=== PATIENT | male | born 1965 | race Caucasian/White ===

== ENCOUNTER 2023-09-05 10:55 | Outpatient (REF) | payer OTHER, SELFPAY ==
[2023-09-05 14:42] LABS: MANUAL DIFF FLAG NO
[2023-09-05 14:52] LABS: Basophils Percent Auto 0.5 % (0-2); Eosinophils Absolute Auto 0.3 X10*3/uL (0.0-0.4); Eosinophils Percent Auto 3.1 % (0-4); Hematocrit 43.2 % (42.0-52.0); Hemoglobin 14.1 g/dl (14.0-18.0); Imm Gran Abs Auto 0.05 X10*3/uL (0.00-0.03); Imm Gran Pct Auto 0.6 % (0.0-0.4); Lymphocytes Absolute Auto 2.5 X10*3/uL (1.2-4.9); Mean Corpuscular HGB Conc 32.6 g/dl (31.0-36.0); Mean Corpuscular Hemoglobin 28.7 pg (27.0-33.0); Mean Platelet Volume 9.8 fL (9.4-12.4); Monocytes Absolute Auto 0.8 X10*3/uL (0.1-1.2); Monocytes Percent Auto 8.7 % (2-11); Neutrophils Absolute Auto 5.1 x10*3/uL (2.0-8.3); Neutrophils Percent Auto 58.1 % (45-73); Platelet Count 279 X10*3/uL (160-400); Red Blood Count 4.91 X10*6/uL (4.60-5.80); Red Cell Distribution Width 13.4 % (11.0-16.0); White Blood Count 8.7 X10*3/uL (4.8-10.8)
[2023-09-05 15:09] LABS: Alanine Aminotransferase 26 U/L (0-40); Albumin Level 4.7 g/dL (3.5-5.0); Alkaline Phosphatase 64 U/L (39-117); Anion Gap 14 (12-20); Aspartate Amino Transferase 24 U/L (5-37); Bilirubin Total 0.5 mg/dL (0.0-1.0); Blood Urea Nitrogen 22 mg/dL (9-16); Calcium 9.9 mg/dL (8.4-10.2); Carbon Dioxide 28 mmol/L (22-29); Chloride 100 mmol/L (96-108); Estimated Glomerular Filt Rate > 60; Glucose Random 88 mg/dL (60-115); Potassium 3.6 mmol/L (3.3-5.1); Sodium 138 mmol/L (135-145); Total Protein 8.1 g/dL (6.5-8.0)
== END 2023-09-05 10:56 | disposition home or self-care (01) ==
LOC: CF 10:55
PROVIDERS: Visit Provider Internal Medicine
DX: Z01.818 Encounter for other preprocedural examination (principal)
CPT/HCPCS: 36415; 80053; 85025

== ENCOUNTER 2023-09-12 11:12 | Day surgery (SDC) | payer OTHER, SELFPAY ==
[2023-09-06 12:43] VITALS: BMI 31.7
[2023-09-12] VITALS (7 sets, daily range): BP systolic 102–136; BP diastolic 58–81; PULSE 66–76; RESP 16–18; TEMP 36.3–37.1; O2SAT 93–99; BMI 30.6
--- NOTE | 2023-09-12 15:35 | HO.ANESPROP2 ---
Documented by User: Tracey Junior NP 09/11/23 13:43 HPI - Anesthesia Eval Consult details Narrative: 57yo M for Left Superior Rectus Eye Muscle Recession,Right Inferior Oblique Medically optimized +[employer] [facility] Past Medical History Medical History History of snoring HTN (hypertension) Surgical History Surgical History Hx of colonoscopy Hx of bilateral cataract extraction Social History Social History Are you a primary geriatric care manager to a significant other at home: No Do you presently have visiting nurse or other home services: No Patient Tobacco Use Status: Never used Tobacco Use of substances other than those prescribed or required for medical reasons: No Have you been hit, kicked, punched, or otherwise hurt by someone within the past year? If so, by whom?: No Are you DNR?: No Advance Directives: No Advance Directives Information Provided: Yes Advance Directives on File: No Recently lost weight without trying: No Poor oral hygiene: No Meds Allergies Allergy/AdvReac Type Severity Reaction Status Date / Time No Known Allergies Allergy Verified 09/06/23 12:43 Home Medications ?Medication ?Instructions ?Recorded ?Confirmed ?Last Taken ?Type chlorthalidone 50 mg tablet 50 mg PO DAILY 09/06/23 09/12/23 09/11/23 History lisinopril 40 mg tablet 40 mg PO DAILY 09/06/23 09/12/23 09/12/23 History Exam Height,Weight and Vital Signs: Height 6 ft 3 in Weight 115.212 kg Pertinent Lab Results Pertinent Lab Results: Laboratory Tests 09/05/23 10:58 WBC 8.7 Hgb 14.1 Hct 43.2 Plt Count 279 Sodium 138 Potassium 3.6 Chloride 100 Carbon Dioxide 28 BUN 22 H Creatinine 1.02 Assessment and Plan Assessment Anesthesia Assessment: Chart Reviewed Documented by User: Luiza Escobar DO 09/12/23 15:55 [facility] Past Medical History Medical History History of snoring HTN (hypertension) Family History Family history of problems with anesthesia: No Surgical History Surgical History Hx of colonoscopy Hx of bilateral cataract extraction History of Problems with Anesthesia: No Social History Social History Are you a primary geriatric care manager to a significant other at home: No Do you presently have visiting nurse or other home services: No Patient Tobacco Use Status: Never used Tobacco Use of substances other than those prescribed or required for medical reasons: No Have you been hit, kicked, punched, or otherwise hurt by someone within the past year? If so, by whom?: No Are you DNR?: No Advance Directives: No Advance Directives Information Provided: Yes Advance Directives on File: No Recently lost weight without trying: No Poor oral hygiene: No Meds Allergies Allergy/AdvReac Type Severity Reaction Status Date / Time No Known Allergies Allergy Verified 09/06/23 12:43 Home Medications ?Medication ?Instructions ?Recorded ?Confirmed ?Last Taken ?Type chlorthalidone 50 mg tablet 50 mg PO DAILY 09/06/23 09/12/23 09/11/23 History lisinopril 40 mg tablet 40 mg PO DAILY 09/06/23 09/12/23 09/12/23 History Exam Exam Date and Time: September 12, 2023 1535 Height,Weight and Vital Signs: Height 6 ft 3 in Weight 115.212 kg Height 6 ft 3 in Weight 111.13 kg Vital Signs Temperature 98.8 F 09/12/23 13:01 Pulse Rate 76 09/12/23 13:01 Respiratory Rate 16 09/12/23 13:01 Blood Pressure 136/81 09/12/23 13:01 Pulse Oximetry 95 09/12/23 13:01 Oxygen Delivery Method Room Air 09/12/23 13:01 Temperature 98.8 F 09/12/23 13:01 Pulse Rate 76 09/12/23 13:01 Respiratory Rate 16 09/12/23 13:01 Blood Pressure 136/81 09/12/23 13:01 Pulse Oximetry 95 09/12/23 13:01 Oxygen Delivery Method Room Air 09/12/23 13:01 Airway Mallampati Class: II TM Dist: >3cm Neck ROM: Limited Loose/Missing/Broken Teeth: No (patient denies any loose or broken teeth) Heart: S1S2 Lungs: CTAB Assessment and Plan Assessment Anesthesia Assessment: Anesthesia Plan Discussed and Chart Reviewed Final Anesthetic Review Family History of Problems with Anesthesia: No History of Problems with Anesthesia: No NPO: Yes ASA Class: II Final Preanesthetic Review: No Changes in Pt Med Stat, Meds/Allgs Chart Reviewed, Consent Obtained/Reviewed and Anes Risks/Benef Reviewed Patient Risk: Low Procedure Risk: Low Anesthetic Plan Anesthetic Plan: GA and Agree w/ Assess. and Plan Disposition: Standard PACU
--- NOTE | 2023-09-12 17:48 | P.OPHTHAL_ITS ---
Ophthalmology Operative Note Date of Service: 09/12/23 Narrative: Diagnosis right superior oblique palsy. Procedures 1. Recession of left inferior rectus 6 mm 2. Anterior transposition of the right inferior oblique. Surgeon Dr. Gaviria. Anesthesia general. Complications none. The patient was brought to the operating room placed under general anesthesia. The eyes were prepped and draped in the usual sterile ophthalmic fashion. A lid speculum was placed in the left eye and a peritomy was created around the inferior rectus muscle. The inferior rectus was hooked and secured with a double-armed Vicryl suture. The overlying fascial attachments and lid retractors were dissected f ree. The muscle was disinserted from the globe and reattached to a position 6 mm behind the original insertion. Conjunctiva was closed with interrupted Vicryl sutures. The lid speculum was moved to the right eye where a peritomy was created from the 04:00 o'clock to the 09:00 o'clock positions. The inferior and lateral rectus muscles were grasped with large muscle hooks and the inferior oblique carefully identified and grasped with 2 small tenotomy hooks. It was transferred to the large muscle hooks and grasped near its insertion with a curved mosquito. Was then disinserted from the globe and transposed to a position 2 mm posterior and 2 mm temporal to the temporal insertion of the inferior rectus muscle. Conjunctiva was closed with interrupted Vicryl sutures. The patient was then awoken from general anesthesia and discharged to postoperative recovery in good condition
== END 2023-09-12 17:57 | disposition home or self-care (01) ==
LOC: HO.SSS 11:12
PROVIDERS: PCP Internal Medicine; Visit Provider Ophthalmology
PROC: (CPT 67314; principal; 2023-09-12 13:30)
DX: H49.11 Fourth [trochlear] nerve palsy, right eye (principal); I10 Essential (primary) hypertension; Z79.899 Other long term (current) drug therapy
CPT/HCPCS: 67314; 67320; J0131; J1100; J1596; J1885; J2250; J2371; J2405; J2704; J3010

== ENCOUNTER 2023-09-21 08:20 | Outpatient (REF) | payer OTHER, SELFPAY ==
[2023-09-21 14:17] LABS: Cholesterol 180 mg/dL (<200); HDL Cholesterol 34 mg/dL (>40); LDL Cholesterol Calculated 127 mg/dL (<100); Triglycerides 98 mg/dL (<150)
[2023-09-21 14:51] LABS: PSA,Total (Free>4and<10) 4.52 ng/mL (0.00-4.00)
[2023-09-24 10:59] LABS: Free Prostate Spec Ag 0.5 ng/mL; Percent Free Prostate Spec Ag 12 % (calc) (>25); Prostate Specific Ag Total 4.3 ng/mL (< OR = 4.0)
== END 2023-09-21 08:21 | disposition home or self-care (01) ==
LOC: HO.CHCLDS 08:20
PROVIDERS: Visit Provider Internal Medicine
DX: I10 Essential (primary) hypertension (principal); R35.1 Nocturia; Z12.5 Encounter for screening for malignant neoplasm of prostate
CPT/HCPCS: 36415; 80061; 84153; 84154

== ENCOUNTER 2023-09-25 12:21 | Outpatient (REF) | payer OTHER, SELFPAY ==
--- NOTE | ~2023-09-25 | XR_ITS ---
EXAMINATION: XR HIP, RIGHT CLINICAL INFORMATION: Atraumatic right hip pain for months COMPARISON: None available. TECHNIQUE: Two views of the right hip. FINDINGS: Severe hip joint narrowing. Possible humeral head bone island. No fracture or dislocation. XR/XR hip RT min 2V IMPRESSION: Advanced osteoarthritis right hip.
== END 2023-09-25 12:22 | disposition home or self-care (01) ==
LOC: HO.HHCX 12:21
PROVIDERS: Visit Provider Internal Medicine
DX: M25.551 Pain in right hip (principal)
CPT/HCPCS: 73502

== ENCOUNTER 2024-01-22 12:47 | Outpatient (REF) | payer OTHER, SELFPAY ==
--- NOTE | ~2024-01-22 | US_ITS ---
EXAMINATION: US EXTRACRANIAL CAROTID DUPLEX, BILATERAL CLINICAL INFORMATION: Hypertension. Bilateral carotid stenoses COMPARISON: None TECHNIQUE: Real-time ultrasound and Doppler techniques (integrating B-mode 2-D vascular images, Doppler spectral analysis and color-flow Doppler imaging) were utilized to interrogate the extracranial carotid arteries, the vertebral arteries and proximal subclavian arteries bilaterally. The degree of stenosis is determined by criteria similar to NASCET. FINDINGS: Right Side: 1. There is mild atherosclerotic plaque seen in the bifurcation/proximal ICA region. 2. The common carotid artery PSV proximally is 158 cm/s and distally 133 cm/s. 3. The proximal internal carotid artery velocities are 79 cm/s systolic and 14 cm/s diastolic. 4. The proximal external carotid artery PSV is 184 cm/s. 5. The vertebral artery shows antegrade flow. 6. The subclavian artery waveforms are normal. Left Side: 1. There is mild atherosclerotic plaque seen in the bifurcation/proximal ICA region. 2. The common carotid artery PSV proximally is 204 cm/s and distally 117 cm/s. 3. The proximal internal carotid artery velocities are 102 cm/s systolic and 24 cm/s diastolic. 4. The proximal external carotid artery PSV is 127 cm/s. 5. The vertebral artery shows antegrade flow. 6. The subclavian artery waveforms are normal. US/US carotid duplex BI IMPRESSION: 1. RIGHT: Minimal, non-hemodynamically significant stenosis of the proximal right internal carotid artery corresponding to a 0-49% stenosis by velocity criteria. 2. LEFT: Minimal, non-hemodynamically significant stenosis of the proximal left internal carotid artery corresponding to a 0-49% stenosis by velocity criteria. Electronically signed by: Neil St MD 01/25/2024 09:56 AM EST
== END 2024-01-22 12:48 | disposition home or self-care (01) ==
LOC: HO.HMGCX 12:47
PROVIDERS: PCP Internal Medicine; Visit Provider Internal Medicine
DX: I65.23 Occlusion and stenosis of bilateral carotid arteries (principal)
CPT/HCPCS: 93880

== ENCOUNTER 2024-06-04 09:51 | Outpatient (REF) | payer OTHER, SELFPAY ==
--- OUTSIDE RECORDS SUMMARY | 2024-06-04 11:16 | XMS_ITS | Encounter Summary ---
Author Organization [employer] Address [address] [place] [address] [address] [place] [address] Care Team Providers Care Slot Floorperson Name Role Phone Galindo Cameron MD Primary Care Prov ider Encounter Details Date Type Department Care Team (Late Contact Info) Description 10/18/2023 Orders Only [facility] MED & PEDS [address] [place] [address] Galindo Cameron MD [address] [place] [address] Social History Tobacco Use Types Packs/Day Years Used Date Smoking Tobacco: Never Smokeless Tobacco: Never Sex and Gender Information Value Date Recorded Sex Assigned at Male 12/12/2021 10:18 AM EDT Legal Sex Male 10:18 AM EDT Gender Identity Male 12/12/2021 10:18 AM EDT Sexual Orientation Straight 09/03/2023 2: 31 PM EDT documented as of this encounter Plan of Treatment Upcoming Encounters Date Type Department Care Team (Late Contact Info) Description 08/18/2024 10:30 AM EDT Office Visit [facility] PEDS [address] [place] [address] Galindo Cameron MD [address] [place] [address] documented as of this encounter Visit Diagnoses Not on filedocumented in this encounter Care Teams Slot Floorperson Relationship Specialty Start Date End Date Galindo Cameron MD [address] [place] [address] PCP - General Internal Medicine 01/02/19 documented as of this encounter
--- OUTSIDE RECORDS SUMMARY | 2024-06-04 11:16 | XMS_ITS | Encounter Summary ---
Author Organization [employer] Address [address] [facility] [address] [place] [address] Care Team Providers Care Music Adapter Name Role Phone Galindo Cameron MD Primary Care Prov ider Reason for Visit * Reason Onset Date Comments Referral 12/03/2023 Encounter Details Date Type Department Care Team (Late st Contact Info) Description 12/03/2023 Telephone [facility] MEDICINE [address] [place] [address] Galindo Cameron MD [address] [place] [phone] Referral Social History Tobacco Use Types Packs/Day Years Used Date Smoking Tobacco: Never Smokeless Tobacco: Never Sex and Gender Information Value Date Recorded Sex Assigned at Male 12/12/2021 10:18 AM EDT Legal Sex Male 10:18 AM EDT Gender Identity Male 12/12/2021 10:18 AM EDT Sexual Orientation Straight 09/03/2023 2: 31 PM EDT documented as of this encounter Miscellaneous Notes * Telephone Encounter - Gonzalo rOtiz - 12/04/2023 10:45 AM EDT Tc from patients spouse returning call in regards to message below * Telephone Encounter - Chirag Kuo RN - 12/03/2023 2:20 PM EDT Returned call below to Martha Arizmendi (spouse, on HIPAA). Spoke with her who is requesting for provider to switch cardiology referral from regular to emergency. Martha report that pt had a heart attack and a stent was placed . 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 Martha stated she called [facility] and in order for pt to be seen as soon as possible referral needs to be changed to emergency. Advised that request will be sent to provider who placed the referral. Martha verbalized understanding and agreed to plan. * Telephone Encounter - Gonzalo Perez - 12/03/2023 11:11 AM EDT Tc from patients spouse calling to request if the provider can call in the referral for cardiology states patient still has not been called for appt continuity writer does see referral appt pending documented in this encounter Plan of Treatment Upcoming Encounters Date Type Department Care Team (Late st Contact Info) Description 08/18/2024 10:30 AM EDT Office Visit [facility] MED & PEDS [address] [place] [address] Galindo Cameron MD [address] [place] [address] documented as of this encounter Visit Diagnoses Not on filedocumented in this encounter Care Teams Music Adapter Relationship Specialty Start Date End Date Galindo Cameron MD [address] [place] [address] PCP - General Internal Medicine 01/02/19 documented as of this encounter
--- OUTSIDE RECORDS SUMMARY | 2024-06-04 11:16 | XMS_ITS | Encounter Summary ---
Author Organization [employer] Address [address] [place] [address] [address] [place] [address] Care Team Providers Care Occupational Ther Name Role Phone Galindo Cameron MD Primary Care Prov ider Encounter Details Date Type Department Care Team (Late st Contact Info) Description 05/12/2024 Orders Only [facility] MED & PEDS [address] [place] [address] ProviderJenn MD Social History Tobacco Use Types Packs/Day Years Used Date Smoking Tobacco: Never Smokeless Tobacco: Never Depression Answer Date Recorded Patient Health Questionnaire-9 Score 1 05/12/2024 Patient Health Questionnaire-9 Score 1 05/12/2024 Last PHQ-9: Questionnaire Data Not on file 0 05/12/2024 Depression Answer Date Recorded Patient Health Questionnaire-2 Score 0 05/12/2024 Sex and Gender Information Value Date Recorded Sex Assigned at Male 12/12/2021 10:18 AM EDT Legal Sex Male 10:18 AM EDT Gender Identity Male 12/12/2021 10:18 AM EDT Sexual Orientation Straight 09/03/2023 2: 31 PM EDT documented as of this encounter Plan of Treatment Upcoming Encounters Date Type Department Care Team (Late st Contact Info) Description 08/18/2024 10:30 AM EDT Office Visit [facility] MED & PEDS [address] [place] [address] Galindo Cameron MD [address] [place] [address] documented as of this encounter Procedures Procedure Name Priority Date/Time Associated Diagnosis Comments SURGICAL PATHOLOGY Routine 04/28/2024 10:08 AM EDT documented in this encounter Results * Surgical Pathology (04/28/2024 10:08 AM EDT) us Historical Provider LAB PATHOLOGY ORDERABLES Final Result documented in this encounter Visit Diagnoses Not on filedocumented in this encounter Additional Health Concerns Assessment Noted Time PHQ-9 Depression Total Score: 1 05/13/19 25 2:54 PM EDT documented as of this encounter Care Teams Occupational Ther Relationship Specialty Start Date End Date Galindo Cameron MD [address] [place] [address] PCP - General Internal Medicine 01/02/19 documented as of this encounter
--- OUTSIDE RECORDS SUMMARY | 2024-06-04 11:16 | XMS_ITS | Data Portability ---
Author Organization [facility] [employer] [facility] [address] Address [address] [place] [address] Assessment No assessment recorded. Plan of Treatment Reminders Order Date Submit Date Provider Last Modified By Organization Details Last Modified Time Details Appointments None record ed. Lab None record ed. Referral None record ed. Procedures None record ed. Surgeries None record ed. Imaging None record ed. Medication Orders None record ed. Patient TargetsNo targets recorded. Patient InstructionsNo instructions recorded. Reason for Referral None Reported. Procedures Surgical History Date Name Laterality Status Provider Name and Address Organization Details Recorded Time [facility] PHYSICAL completed KEVON CARL [place] [employer] [facility] 04/27/2022 11:02:29 Imaging Results None recorded. Procedure Notes None recorded. Medical Equipment None Reported. Vitals None Recorded Social History None recorded. Functional Status None recorded. Mental Status None recorded. Family History Nothing Reported. Medical History No medical history recorded. Past Encounters Encounter ID Performer Location Encounter Start Date Encounter Closed Date Diagnosis/Indication Diagnosis SNOMED-CT Code Diagnosis ICD10 Code Diagnosis Note [id number] [place] [id number] [address] [place] [address] 04/27/2022 09:58:23 04/27/2022 13:08:40 Molecular Technologist license medical examination 778881208 Z02.4 Physical examination 588 0005 Z02.4 Health Concerns Section Related Observation LastModified by Organization Detai ls LastModified Time None Recorded Concern Status LastModified by Organization Details LastModified Time None Recorded Advance Directives Directive None Recorded Payers Encounter Date Sequence Insurance Name Policy Number Policy Shell Covered Member ID Shell Member ID Guarantor Name 04/27/2022 DO NOT USE Pay At Time Of Service FOOD DISTRIBUTER Jaleel Gay
--- OUTSIDE RECORDS SUMMARY | 2024-06-04 11:17 | XMS_ITS | Encounter Summary ---
Author Organization [employer] Address [address] [place] [address] [address] [place] [address] Care Team Providers Care Floater Operator Name Role Phone Galindo Cameron MD Primary Care Prov ider Reason for Visit * Reason Comments Med Refill Encounter Details Date Type Department Care Team (Late Contact Info) Description 01/05/2024 Refill [facility] MED & PEDS [address] [place] [address] Galindo Cameron MD [address] [place] [address] Social History Tobacco Use Types Packs/Day Years [...] Description 08/18/2024 10:30 AM EDT Office Visit [facility] MED & PEDS [address] [place] [address] Galindo Cameron MD [address] [place] [address] documented as of this encounter Visit Diagnoses Not on filedocumented in this encounter Care Teams Floater Operator Relationship Specialty Start Date End Date Galindo Cameron MD [address] [place] [address] PCP - General Internal Medicine 01/02/19 documented as of this encounter
--- OUTSIDE RECORDS SUMMARY | 2024-06-04 11:17 | XMS_ITS | Encounter Summary ---
Author Organization [employer] Address [address] [facility] [address] [place] [address] Care Team Providers Care Beef Killer Name Role Phone Galindo Cameron MD Primary Care Prov ider Reason for Visit * Reason Onset Date Comments Pre-Op 08/24/2023 Encounter Details Date Type Department Care Team (Late st Contact Info) Description 08/24/2023 Telephone [facility] MEDICINE [address] [place] [address] Galindo Cameron MD [address] [place] [phone] Pre-Op Social History Tobacco Use Types Packs/Day Years Used Date Smoking Tobacco: Never Assessed Sex and Gender Information Value Date Recorded Sex Assigned at Male 12/12/2021 10:18 AM EDT Legal Sex Male 10:18 AM EDT Gender Identity Male 12/12/2021 10:18 AM EDT Sexual Orientation Straight 09/03/2023 2: 31 PM EDT documented as of this encounter Miscellaneous Notes * Telephone Encounter - Hector Cates - 08/24/2023 1:25 PM EDT TC placed to pt and Kiley ([facility]) that agreed to pre-op on 08/31/[address] Torres Date of Surgery: 09/11 Surgical procedure being done: Eye Muscle Surgery Type of anesthesia: General Lab needed: No EKG: No Surgeon's name: Dr. Declan Gar Facility name: [facility] Surgeon's office number: [phone] Surgeon's office fax number: [phone] Contact name: Kiley * Telephone Encounter - Rajiv Dao - 08/24/2023 11:35 AM EDT Date of Surgery: 09/11 Surgical procedure being done: Eye Muscle Surgery Type of anesthesia: General Lab needed: No EKG: No Surgeon's name: Dr. Declan Gar Facility name: [facility] Surgeon's office number: [phone] Surgeon's office fax number: [phone] Contact name: Kiley documented in this encounter Plan of Treatment Upcoming Encounters Date Type Department Care Team ([facility] st Contact Info) Description 08/18/2024 10:30 AM EDT Office Visit [facility] MED & PEDS [address] [place] [address] Galindo Cameron MD [address] [place] [address] documented as of this encounter Visit Diagnoses Not on filedocumented in this encounter Care Teams Beef Killer Relationship Specialty Start Date End Date Galindo Cameron MD [address] [place] [address] PCP - General Internal Medicine 01/02/19 documented as of this encounter
--- OUTSIDE RECORDS SUMMARY | 2024-06-04 11:17 | XMS_ITS | Clinical Summary ---
Author Organization [employer] Address [address] [facility] 7t [place] [address] Care Team Providers Care Antique Finisher Name Role Phone Galindo Cameron MD Primary Care Prov ider Allergies No known active allergies Medications Aspirin Low Dose 81 MG EC tablet Take 81 mg by mouth Once per day. 11/12/19 24 Active clopidogrel (Plavix) 75 MG tablet Take 1 tablet by mouth Once per day. 11/12/19 24 Active metoprolol succinate XL (Toprol-XL) 25 MG 24 hr tablet Take 1 tablet by mouth Once per day. 11/12/19 24 Active rosuvastatin (Crestor) 40 MG tablet Take 1 tablet by mouth at bedtime. 11/12/19 24 Active chlorthalidone (Hygroton) 50 MG tablet TAKE 1 TABLET BY MOUTH EVERY DAY 90 tablet 1 05/13/19 25 Active lisinopril 40 MG tabletIndication s:Primary hypertension TAKE 1 TABLET(40 MG) BY MOUTH IN THE MORNING 90 tablet 1 05/13/19 25 Active chlorthalidone (Hygroton) 50 MG tablet TAKE 1 TABLET BY MOUTH EVERY DAY 90 tablet 1 11/13/19 24 025 Discontinued lisinopril 40 MG tabletIndication s:Primary hypertension TAKE 1 TABLET(40 MG) BY MOUTH IN THE MORNING 90 tablet 1 11/13/19 24 025 Discontinued Active Problems Problem Noted Date Diagnosed Date ST elevation myocardial infa rction involving left anterior descending (LAD) coronary artery 12/26/2023 Assessment & Plan (12/26/2023 12:41 PM EST): Patient underwent CHAVEZ, no chest pain reported, followed by cardiology, on rsuvastatin 40mg, DAPT, undergoing cardiac rehab, will follow up reccomendations Bilateral carotid artery stenosis 12/26/2023 Assessment & Plan (12/26/2023 12:41 PM EST): Will order ultrasound t check for carotid artery stenosis Primary hypertension 09/17/2023 Assessment & Plan (05/12/2024 3:53 PM EDT): Controlled, continue current therapy, keep bp log, target <140/90 Assessment & Plan (12/26/2023 12:39 PM EST): Controlled, continue lisinopril/chlorthalidone and metoprolol, keep bp log, keep low sodium diet, follow up in 3 months Assessment & Plan (09/17/2023 7:28 PM EDT): Controlled on lisinopril and chlorthalidone, continue low sodium diet and exercise as tolerated Nocturia 09/17/2023 Assessment & Plan (09/17/2023 7:30 PM EDT): Will send PSA, avoid liquid intake 4 hours prior to sleeping, avoid caffeine Right hip pain 09/17/2023 Assessment & Plan (05/12/2024 3:54 PM EDT): Will refer to ortho, Assessment & Plan (09/17/2023 7:29 PM EDT): Will order a right hip xray and will start on meloxicam, will refer to PT Encounters Date Type Department Care Team Description 05/12/2024 3:30 PM EDT Telemedicine [facility] [address] [place] [address] Galindo Cameron MD Primary hypertension (Primary Dx); Right hip pain 05/12/2024 Travel 05/12/2024 Orders Only [facility] [address] [facility] [place] [address] ProviderJenn MD 05/12/2024 Refill [facility] [address] [place] [address] Galindo Cameron MD Primary hypertension 04/10/2024 Telephone [facility] [address] [place] [address] Galindo Cameron MD from Last 3 Months Immunizations Name Administration Dates Next Due Influenza, seasonal, injecta ble, preservative free 11/19/2023 Pfizer Covid-19 Vaccine 12+ 01/02/2021,,05/15/2020 Tdap 01/02/2019 Zoster, Recombinant 03/10/2019,01/02/2019 Family History Medical History Relation Name Comments Prostate cancer Mother's Brother Relation Name Status Comments Mother's Brother Social History Tobacco Use Types Packs/Day Years Used Date Smoking Tobacco: Never Smokeless Tobacco: Never Tobacco Cessation:Counseling Given: No Depression Answer Date Recorded Patient Health Questionnaire-9 [...] Orientation Straight 09/03/2023 2: 31 PM EDT Last Filed Vital Signs Vital Sign Reading Time Taken Comments Blood Pressure 129/75 05/12/2024 3:53 PM EDT Pulse 80 12/26/2023 10:50 AM EST Temperature 37.1 ??C (98.7 ??F) 12/26/2023 10:[address] Respiratory Rate 20 12/26/2023 10:50 AM EST Oxygen Saturation 98% 11/19/2023 10:32 AM EDT Inhaled Oxygen Concentration - - Weight 110 kg (242 lb) 12/26/2023 10:50 AM EST Height 182.9 cm (6') 12/26/2023 10:50 AM EST Body Mass Index 32.82 12/26/2023 10:50 AM EST Plan of Treatment Upcoming Encounters Date Type Department Care Team (Late st Contact Info) Description 08/18/2024 10:30 AM EDT Office Visit [facility] [address] [place] [address] Galindo Cameron MD [address] [place] [address] Health Maintenance Due Date Last Done Comments CT Colonography 1964 Colonoscopy 1964 Colorectal Cancer Screening 1964 FIT DNA/Cologuard 1964 FIT 1964 FOBT 1964 HIV Screening 1964 SDOH Screening 1964 Sigmoidoscopy 1964 Hepatitis C Screening 1982 Hepatitis B Vaccines (1 of 3 - 19+ 3-dose series) 11/05/1983 Pneumococcal Vaccine: 50+ Years (1 of 2 - PCV) 11/05/1983 COVID-19 Vaccine ( season) 2023 01/22/2022, 01/02/2021, 06/05/2020, Additional history exists Tobacco Screening 11/18/2024 11/19/2023 Alcohol/Substance Use Screening 05/12/2025 05/12/2024 Depression Screening 05/12/2025 05/12/2024, 05/13/19 25 Lipid Panel 09/20/2028 09/21/2023, 01/21/2021 DTaP/Tdap/Td Vaccines (2 - Td or Tdap) 01/02/2029 01/02/2019 RSV Patients and Patients Aged 60 years or older (1 - 1-dose 75+ series) 11/05/2039 Zoster Vaccines Completed 03/10/2019, 01/02/2019 Influenza Vaccine Completed 11/19/2023 HIB Vaccines Aged Out No longer eligi ble based on patient's age to complete this topic HPV Vaccines Aged Out No longer eligi ble based on patient's age to complete this topic Hepatitis A Vaccines Aged Out No long er eligible based on patient's age to complete this topic IPV Vaccines Aged Out No longer eligi ble based on patient's age to complete this topic Meningococcal Vaccine Aged Out No eugenie debra eligible based on patient's age to complete this topic RSV under 20 months Aged Out No longe r eligible based on patient's age to complete this topic Rotavirus Vaccines Aged Out No longer eligible based on patient's age to complete this topic Procedures Procedure Name Priority Date/Time Associated Diagnosis Comments SURGICAL PATHOLOGY Routine 04/28/2024 10 :08 AM EDT LIPID PANEL, STANDARD Routine 09/21/2023 8:21 AM EDT Primary hypertension from Last 3 Months or Most Recently Relevant to Health Maintenance Results * Surgical Pathology (04/28/2024 10:08 AM EDT) Historical Provider LAB PATHOLOGY ORDERABLES Final Result * (ABNORMAL) Lipid Panel, Standard (09/21/2023 8:21 AM EDT) Triglycerides 98 <150 mg/dL [facility] Comment:Desirable Triglyceri de: less than 150 mg/dLBorderline High Triglyceride 150-199 mg/dLHigh Triglyceride: 200-499 mg/dLVery High Triglyceride: greater than or equal to 5OO mg/dL Cholesterol 180 <200 mg/dL [facility] Comment:Desirable Cholestero l: less than 200 mg/dLBorderline High Cholesterol: 200-239 mg/dLHigh Cholesterol: greater than 239 mg/dL LDL Cholesterol Calculated 127(H) <100 mg/dL [facility] Comment:Desirable LDL: less than 100 mg/dLNear Optimal/Above Optimal LDL: 110- 129 mg/dLBorderline High LDL: 130-159 mg/dLHigh LDL: 160-189 mg/dLVery High LDL: greater than or equal to 190 mg/dL HDL Cholesterol 34(L) >40 mg/dL [facility] Comment:Desirable HDL: great er than 40 mg/dL Note: This HDL assay may give artificially low results in patients with liver disease. Blood Venous blood specimen / Unknown 09/21/2023 8:21 AM EDT 09/21/2023 1:59 PM EDT Galindo Field MD LAB BLOOD ORDERABL ES Final Result [facility] [address] [place] [phone] from Last 3 Months or Most Recently Relevant to Health Maintenance Insurance , [address] [place] [address] Care Teams Antique Finisher Relationship Specialty Start Date End Date Galindo Cameron MD [address] [place] [address] PCP - General Internal Medicine 01/02/19
--- OUTSIDE RECORDS SUMMARY | 2024-06-04 11:17 | XMS_ITS | Clinical Summary ---
Author Organization [facility] [employer] [facility] Address [address] [place] [address] Phone Care Team Providers Care Gas Distribution Plant Operator Name Role Phone Susan Keita MD Primary Care Provider Allergies No known active allergies Active Problems Problem Noted Date Diagnosed Date STEMI (ST elevation myocardi al infarction) (CMS/HCC V24, CMS/HCC V28) 12/21/2023 HTN (hypertension) 12/21/2023 Encounters Date Type Department Care Team Description 04/29/2024 Lab Requisition [facility] - Main Lab [address] [facility] [place] [phone] Hector Dash MD Elevated prostate specific antigen (PSA) from Last 3 Months Medical History Medical History Date Comments Hypertrophy of prostate BENIGN Social History Tobacco Use Types Packs/Day Years Used Date Smoking Tobacco: Never Assessed Sex and Gender Information Value Date Recorded Sex Assigned at Not on file Legal Sex Male 8:27 AM EST Gender Identity Not on file Sexual Orientation Not on file Obstetrics History Plan of Treatment Health Maintenance Due Date Last Done Comments Hepatitis B Vaccines (1 of 3 - 19+ 3-dose series) 11/05/1983 Pneumococcal Vaccine: 50+ Years (1 of 1 - PCV) 2014 Colorectal Cancer Screening: Colonoscopy 03/13/2023 Depression Screening 03/13/2023 HIV Screening 03/13/2023 Hepatitis C Screening 03/13/2023 Social Influencers of Health Screening 03/13/2023 COVID-19 Vaccine (2023-2 5 season) 2023 01/02/2021, 06/05/2020, 05/15/2020 Hypertension/CHF/CAD Annual BMP Blood Test 12/21/2023 Cholesterol Screening (Lipid Panel) 09/20/2028 09/21/2023 DTaP,Tdap,and Td Vaccines (2 - Td or Tdap) 01/02/2029 01/02/2019 RSV Immunization Adult Patients (1 - 1-dose 75+ series) 11/05/2039 Zoster [...] on patient's age to complete this topic MMR Vaccines Aged Out No longer eligi ble based on patient's age to complete this topic Meningococcal ACWY Vaccine Aged Out N o longer eligible based on patient's age to complete this topic Meningococcal B Vaccine Aged Out No l onger eligible based on patient's age to complete this topic Pneumococcal Vaccine: Pediatrics (0 to 5 Years) and At-Risk Patients (6 to 64 Years) Aged Out No longer eligible b ased on patient's age to complete this topic RSV Immunization Patients Under 20 months Aged Out No longer eligible b ased on patient's age to complete this topic Varicella Vaccines Aged Out No longer eligible based on patient's age to complete this topic Procedures Procedure Name Priority Date/Time Associated Diagnosis Comments AP OUTSIDE CONSULT Routine 04/28/2024 Elevated prostate specific antigen (PSA) from Last 3 Months Results * Anatomic pathology outside consult (04/28/2024) Final Diagnosis A. Prostate, Left Mid [place] Biopsy: - Benign prostatic tissue. B. Prostate, Left Lat [place] Biopsy: - Benign prostatic tissue. Note: PIN4 stain was examined and supports the above diagnosis. C. Prostate, Left Mid Mid Biopsy: - Benign prostatic tissue. D. Prostate, Left Lat Mid Biopsy: - Benign prostatic tissue. E. Prostate, Left Mid Base Biopsy: - Benign prostatic tissue. F. Prostate, Left Lat Biopsy Biopsy: - Benign prostatic tissue. G. Prostate, Left Peripheral Zone Lesion Biopsy: - Benign prostatic tissue. H. Prostate, Right Mid [place] Biopsy: - Benign prostatic tissue. I. Prostate, Right Lat [place] Biopsy: - Benign prostatic tissue. J. Prostate, Right Mid Mid Biopsy: - Benign prostatic tissue. K. Prostate, Right Lat Mid Biopsy: - Benign prostatic tissue. L. Prostate, Right Mid Base Biopsy: - Benign prostatic tissue. M. Prostate, Right Lat Base Biopsy: - Benign prostatic tissue. N. Prostate, Right Peripheral Zone Lesion Biopsy: - High grade prostatic intraepithelial neoplasia (HGPIN). O. Prostate, Right Transition Zone Lesion Biopsy: - Benign prostatic tissue. 1:06 PM EDT [facility] Clinical Information Elevated PSA Last PSA total = 4.3 (04/28/2024) PSA free: 0.5 (04/28/2024) [id number] 1:06 PM T [facility] Gross Description A. Prostate, Left Mid [place] Biopsy: Received, properly labeled, are two H and E stained slides and two unstained slides. B. Prostate, Left Lat [place] Biopsy: Received, properly labeled, are two H and E stained slides and two unstained slides. C. Prostate, Left Mid Mid Biopsy: Received, properly labeled, are two H and E stained slides and two unstained slides. D. Prostate, Left Lat Mid Biopsy: Received, properly labeled, are two H and E stained slides and two unstained slides. E. Prostate, Left Mid Base Biopsy: Received, properly labeled, are two H and E stained slides and two unstained slides. F. Prostate, Left Lat Biopsy Biopsy: Received, properly labeled, are two H and E stained slides and two unstained slides. G. Prostate, Left Peripheral Zone Lesion Biopsy: Received, properly labeled, are two H and E stained slides and two unstained slides. H. Prostate, Right Mid [place] Biopsy: Received, properly labeled, are two H and E stained slides and two unstained slides. I. Prostate, Right Lat [place] Biopsy: Received, properly labeled, are two H and E stained slides and two unstained slides. J. Prostate, Right Mid Mid Biopsy: Received, properly labeled, are two H and E stained slides and two unstained slides. K. Prostate, Right Lat Mid Biopsy: Received, properly labeled, are two H and E stained slides and two unstained slides. L. Prostate, Right Mid Base Biopsy: Received, properly labeled, are two H and E stained slides and two unstained slides. M. Prostate, Right Lat Base Biopsy: Received, properly labeled, are two H and E stained slides and two unstained slides. N. Prostate, Right Peripheral Zone Lesion Biopsy: Received, properly labeled, are two H and E stained slides and two unstained slides. O. Prostate, Right Transition Zone Lesion Biopsy: Received, properly labeled, are two H and E stained slides and two unstained slides. /al 5 1:06 PM EDT [facility] Disclaimer NOTE: The immunohistochemical tests and in situ hybridization tests were developed and their performance characteristics were determined by [facility]. They have not been cleared or approved by the U.S. Food and Drug Administration. The FDA has determined that such clearance or approval is not necessary. These tests are used for clinical purposes. They should not be regarded as investigational or for research. This laboratory is certified under the Clinical Laboratory Improvement Amendments of 1988 (CLIA) as qualified to perform high complexity clinical laboratory testing. (controls appropriate) Unless otherwise specified, all tissue is 10% NB formalin fixed and paraffin embedded. Technical pathology services provided by [facility] at [address] [place] [address] [address], [place] [address] (CLIA #[id number]/Estela Meehan MD, Administrative Tech) 1:06 PM EDT [facility] Tissue Prostate / Unknown 04/28/20242024 12:49 PM EDT Tissue specimen (specimen) Prostate / Unknown 04/28/2024 04/29/2024 12 :49 PM EDT Tissue specimen (specimen) Prostate / Unknown 04/28/2024 04/29/2024 12 :49 PM EDT Tissue specimen (specimen) Prostate / Unknown 04/28/2024 04/29/2024 12 :49 PM EDT Tissue specimen (specimen) Prostate / Unknown 04/28/2024 04/29/2024 12 :49 PM EDT Tissue specimen (specimen) Prostate / Unknown 04/28/2024 04/29/2024 12 :49 PM EDT Tissue specimen (specimen) Prostate / Unknown 04/28/2024 04/29/2024 12 :49 PM EDT Tissue specimen (specimen) Prostate / Unknown 04/28/2024 04/29/2024 12 :49 PM EDT Tissue specimen (specimen) Prostate / Unknown 04/28/2024 04/29/2024 12 :49 PM EDT Tissue specimen (specimen) Prostate / Unknown 04/28/2024 04/29/2024 12 :49 PM EDT Tissue specimen (specimen) Prostate / Unknown 04/28/2024 04/29/2024 12 :49 PM EDT Tissue specimen (specimen) Prostate / Unknown 04/28/2024 04/29/2024 12 :49 PM EDT Tissue specimen (specimen) Prostate / Unknown 04/28/2024 04/29/2024 12 :49 PM EDT Tissue specimen (specimen) Prostate / Unknown 04/28/2024 04/29/2024 12 :49 PM EDT Tissue specimen (specimen) Prostate / Unknown 04/28/2024 04/29/2024 12 :49 PM EDT us Hector Dash MD LAB PATHOLOGY ORDERABLES Final Result [facility] [address] [place] [address], from Last 3 Months Insurance [facility] Care Teams Gas Distribution Plant Operator Relationship Specialty Start Date End Date Susan Keita MD [address] [place] [address] [place] [address] PCP - General Family Medicine 12/11/23
--- OUTSIDE RECORDS SUMMARY | 2024-06-04 11:17 | XMS_ITS | Encounter Summary ---
Author Organization [employer] [facility] Address [address] [place] [address] 7 [place] [address] Care Team Providers Care Welder Machine Operator Name Role Phone Galindo Cameron MD Primary Care Prov ider Encounter Details Date Type Department Care Team (Late st Contact Info) Description 06/15/2022 Orders Only [facility] [address] [place] [address] Rhonda Hogan LPN Social History Tobacco Use Types Packs/Day Years [...] Description 08/18/2024 10:30 AM EDT Office Visit [facility] [address] [place] [address] Galindo Cameron MD [address] [place] [address] documented as of this encounter Visit Diagnoses Not on filedocumented in this encounter Care Teams Welder Machine Operator Relationship Specialty Start Date End Date Galindo Cameron MD [address] [place] [address] PCP - General Internal Medicine 01/02/19 documented as of this encounter
--- OUTSIDE RECORDS SUMMARY | 2024-06-04 11:17 | XMS_ITS | Encounter Summary ---
Author Organization [employer] Address [address] [place] [address] Care Team Providers Care Otter Trawler Boatswain Name Role Phone Susan Keita MD Primary Care Provider [phone] Encounter Details Date Type Department Care Team (Late st Contact Info) Description 04/29/2024 Lab Requisition [facility] - Main Lab [address] [facility] [place] [phone] Hector Dash MD [address] [place] [phone] Elevated prostate specific antigen (PSA) Social History Tobacco Use Types Packs/Day Years Used Date Smoking Tobacco: Never Assessed Sex and Gender Information Value Date Recorded Sex Assigned at Not on file Legal Sex Male 8:27 AM EST Gender Identity Not on file Sexual Orientation Not on file documented as of this encounter Plan of Treatment Not on file documented as of this encounter Procedures Procedure Name Priority Date/Time Associated Diagnosis Comments AP OUTSIDE CONSULT Routine 04/28/2024 Elevated prostate specific antigen (PSA) documented in this encounter Results * Anatomic pathology outside consult (04/28/2024) Final Diagnosis A. Prostate, Left Mid [place] Biopsy: - Benign prostatic tissue. B. Prostate, Left Lat [place] Biopsy: - Benign prostatic tissue. Note: PIN4 [...] Benign prostatic tissue. H. Prostate, Right Mid [place] Biopsy: - Benign prostatic tissue. I. Prostate, Right Lat [place] Biopsy: - Benign prostatic tissue. J. Prostate, [...] Zone Lesion Biopsy: - Benign prostatic tissue. 5 1:06 PM [facility] Clinical Information Elevated PSA Last PSA total = 4.3 (04/28/2024) PSA free: 0.5 (04/28/2024) [id number] 1:06 PM T [facility] Gross Description A. Prostate, Left Mid [place] Biopsy: Received, properly labeled, are two H and E stained slides and two unstained slides. B. Prostate, Left Lat [place] Biopsy: Received, properly labeled, are two H [...] two unstained slides. H. Prostate, Right Mid [place] Biopsy: Received, properly labeled, are two H and E stained slides and two unstained slides. I. Prostate, Right Lat [place] Biopsy: Received, properly labeled, are two H [...] stained slides and two unstained slides. /al 1:06 PM EDT [facility] Disclaimer NOTE: The immunohistochemical tests and in situ hybridization tests were developed and their performance characteristics were determined by [facility]. They have not been cleared [...] paraffin embedded. Technical pathology services provided by [facility] at [address] [place] [address] [address], [place] [address] (CLIA #[id number]/Estela Meehan MD, Counterperson) 5 1:06 PM EDT [facility] Tissue Prostate / Unknown 04/28/20242024 [...] Dash MD LAB PATHOLOGY ORDERABLES Final Result Performing Organization Address City/State/[facility] Co de Phone Number [facility] [address] [place] [address], documented in this encounter Visit Diagnoses Diagnosis Elevated prostate specific antigen (PSA) documented in this encounter Care Teams Otter Trawler Boatswain Relationship Specialty Start Date End Date Susan Keita MD [address] [place] [address] PCP - General Family Medicine 12/11/23 documented as of this encounter
[2024-06-04 14:24] LABS: Estimated Average Glucose 134 mg/dL; Hemoglobin A1c % 6.3 % (<6.0); Total Hemoglobin (HGBA1C) 3340.4135 umol/L
[2024-06-04 14:32] LABS: Alanine Aminotransferase 27 U/L (0-40); Albumin Level 4.3 g/dL (3.5-5.0); Alkaline Phosphatase 67 U/L (39-117); Anion Gap 12 (12-20); Aspartate Amino Transferase 38 U/L (5-37); Bilirubin Total 0.3 mg/dL (0.0-1.0); Blood Urea Nitrogen 21 mg/dL (9-16); Calcium 9.3 mg/dL (8.4-10.2); Carbon Dioxide 28 mmol/L (22-29); Chloride 101 mmol/L (96-108); Cholesterol 116 mg/dL (<200); Estimated Glomerular Filt Rate > 60; Glucose Random 97 mg/dL (60-115); HDL Cholesterol 28 mg/dL (>40); LDL Cholesterol Calculated 68 mg/dL (<100); Potassium 4.1 mmol/L (3.3-5.1); Sodium 137 mmol/L (135-145); Total Protein 7.4 g/dL (6.5-8.0); Triglycerides 102 mg/dL (<150)
[2024-06-05 04:06] LABS: HIV AB/AG Nonreactive (Nonreactive); HIV Num 1 0.11 S/CO (0.00-0.99); ~HepC Num1 0.08 S/CO (0.00-0.79); ~Hepatitis C Antibody Nonreactive (Nonreactive)
== END 2024-06-04 09:52 | disposition home or self-care (01) ==
LOC: HO.CHCLDS 09:51
PROVIDERS: Visit Provider Internal Medicine
DX: I10 Essential (primary) hypertension (principal); Z13.1 Encounter for screening for diabetes mellitus
CPT/HCPCS: 36415; 80053; 80061; 83036; 86803; 87389

== ENCOUNTER 2024-11-21 08:50 | Outpatient (REF) | payer OTHER, SELFPAY ==
--- OUTSIDE RECORDS SUMMARY | 2024-11-21 09:12 | XMS_ITS | Encounter Summary ---
Author Organization [employer] Address [address] [facility] 7t [place] [address] Care Team Providers Care Forepart Rounder Name Role Phone Galindo Cameron MD Primary Care Prov ider Encounter Details Date Type Department Care Team (Late st Contact Info) Description 05/12/2024 Orders Only [facility] [address] [place] [address] ProviderJenn MD Social History Tobacco Use Types [...] PM EDT documented as of this encounter Functional Status * Over the past 2 weeks, how often have you been bothered by any of the following problems? Question Answer Date of Assessment Author Patient Health Questionnaire-2 Score 0 04/14 2:54 PM EDT Mesha Bell MA * Little interest or pleasure in doing things Answer Date of Assessment Author Not at all 05/12/2024 2:54 PM EDT Mesha Bell MA * Feeling down, depressed, or hopeless Answer Date of Assessment Author Not at all 05/12/2024 2:54 PM EDT Mesha Bell MA * Trouble falling or staying asleep, or sleeping too much Answer Date of Assessment Author Not at all 05/12/2024 2:54 PM EDT Mesha Bell MA * Feeling tired or having little energy Answer Date of Assessment Author Several days 05/12/2024 2:54 PM EDT Mesha Bell MA * Poor appetite or overeating Answer Date of Assessment Author Not at all 05/12/2024 2:54 PM EDT Mesha Bell MA * Feeling bad about yourself - or that you are a failure or have let yourself or your family down Answer Date of Assessment Author Not at all 05/12/2024 2:54 PM EDT Mehsa Bell MA * Trouble concentrating on things, such as reading the newspaper or watching television Answer Date of Assessment Author Not at all 05/12/2024 2:54 PM EDT Mesha Bell MA * Moving or speaking so slowly that other people could have noticed? Or the opposite - being so fidgety or restless that you have been moving around a lot more than usual. Answer Date of Assessment Author Not at all 05/12/2024 2:54 PM EDT Mesha Bell MA * Thoughts that you would be better off or hurting yourself in some way Answer Date of Assessment Author Not at all 05/12/2024 2:54 PM EDT Mesha Bell MA * Patient Health Questionnaire-9 Score Answer Date of Assessment Author 1 05/12/2024 2:54 PM EDT Mesha Bell MA * How difficult have these problems made it for you to do your work, take care of things at home, or get along with other people? Answer Date of Assessment Author Not difficult at all 05/12/2024 2:54 PM EDT Mesha Pickens MA documented as of this encounter Plan of [...] documented as of this encounter Care Teams Forepart Rounder Relationship Specialty Start Date End Date Galindo Cameron MD [address] [place] [address] PCP - General Internal Medicine 01/02/19 documented as of this encounter
--- OUTSIDE RECORDS SUMMARY | 2024-11-21 09:12 | XMS_ITS | Encounter Summary ---
Author Organization [employer] Address [address] [facility] 7t [place] [address] Care Team Providers Care Multimedia Assistant Name Role Phone Galindo Cameron MD Primary Care Prov ider Encounter Details Date Type Department Care Team (Late st Contact Info) Description 06/15/2022 Orders Only [facility] MED & PEDS [address] [place] [address] Rhonda Hogan LPN Social History Tobacco Use [...] on file documented as of this encounter Visit Diagnoses Not on filedocumented in this encounter Care Teams Multimedia Assistant Relationship Specialty Start Date End Date Galindo Cameron MD [address] [place] [address] PCP - General Internal Medicine 01/02/19 documented as of this encounter
--- OUTSIDE RECORDS SUMMARY | 2024-11-21 09:12 | XMS_ITS | Encounter Summary ---
Author Organization [email or web address] Address [address] [facility] 7 [place] [address] Care Team Providers Care Community Assistant Name Role Phone Galindo Cameron MD Primary Care Prov ider Reason for Visit * Reason Onset Date Comments Referral 12/03/2023 Encounter Details Date Type Department Care Team (Late st Contact Info) Description 12/03/2023 Telephone [facility] MEDICINE [address] [place] [address] Galindo Cameron MD [address] [place] [phone] Referral Social History Tobacco Use Types Packs/Day [...] Miscellaneous Notes * Telephone Encounter - Gonzalo Ortiz - 12/04/2023 10:45 AM EDT Tc from [...] 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 Martha stated she called [facility] Cardiology and in order for pt to be seen as soon as possible referral needs to be changed to emergency. Advised that request will be sent to provider who placed the referral. Martha verbalized understanding and agreed to plan. * Telephone Encounter - Gonzalo Ortiz - 12/03/2023 11:11 AM EDT Tc from patients spouse calling to request if the provider can call in the referral for cardiology states patient still has not been called for appt narrative writer does see referral appt pending documented in this encounter Plan of Treatment Not on file documented as of this encounter Visit Diagnoses Not on filedocumented in this encounter Care Teams Community Assistant Relationship Specialty Start Date End Date Galindo Cameron MD [address] [place] [phone] PCP - General Internal Medicine 01/02/19 documented as of this encounter
--- OUTSIDE RECORDS SUMMARY | 2024-11-21 09:12 | XMS_ITS | Encounter Summary ---
Author Organization [employer] Address [address] [facility] 7t [place] [address] Care Team Providers Care Cover Assembler Name Role Phone Galindo Cameron MD Primary Care Prov ider Reason for Visit * Reason Comments Med Refill Encounter Details Date Type Department Care Team (Late st Contact Info) Description 01/05/2024 Refill [facility] MED & PEDS [address] [place] [address] Galindo Cameron MD [address] [place] [address] Social History Tobacco Use Types Packs/Day Years [...] on filedocumented in this encounter Care Teams Cover Assembler Relationship Specialty Start Date End Date Galindo Cameron MD [address] [place] [address] PCP - General Internal Medicine 01/02/19 documented as of this encounter
--- OUTSIDE RECORDS SUMMARY | 2024-11-21 09:12 | XMS_ITS | Encounter Summary ---
Author Organization [employer] Address [address] [facility] 7t [place] [address] Care Team Providers Care Fish Filleter Name Role Phone Galindo Cameron MD Primary Care Prov ider Encounter Details Date Type Department Care Team (Late st Contact Info) Description 10/18/2023 Orders Only [facility] CHC MED & PEDS [address] [place] [address] Galindo Cameron MD [address] [place] [address] Social History Tobacco Use Types Packs/Day Years [...] on filedocumented in this encounter Care Teams Fish Filleter Relationship Specialty Start Date End Date Galindo Cameron MD [address] [place] [address] PCP - General Internal Medicine 01/02/19 documented as of this encounter
--- OUTSIDE RECORDS SUMMARY | 2024-11-21 09:12 | XMS_ITS | Clinical Summary ---
Author Organization [employer] Address [address] [facility] 7[address] [place] [address] Care Team Providers Care Airline Counter Agent Name Role Phone Galindo Cameron MD Primary [...] by mouth at bedtime. 11/12/19 24 Active lisinopril 40 MG tabletIndication s:Primary hypertension TAKE 1 TABLET(40 MG) BY MOUTH IN THE MORNING 90 tablet 1 11/12/19 25 Active chlorthalidone (Hygroton) 50 MG tablet TAKE 1 TABLET BY MOUTH EVERY DAY 90 tablet 1 11/12/19 25 Active clopidogrel (Plavix) 75 MG tablet Take 1 tablet by mouth Once per day. 11/12/19 24 025 Discontinued chlorthalidone (Hygroton) 50 MG tablet TAKE 1 TABLET BY MOUTH EVERY DAY 90 tablet 1 05/13/19 25 025 Discontinued lisinopril 40 MG tabletIndication s:Primary hypertension TAKE 1 TABLET(40 MG) BY MOUTH IN THE MORNING 90 tablet 1 05/13/19 25 025 Discontinued traMADol (Ultram) 50 MG tabletIndication s:Right hip pain Take 1 tablet (50 mg) by mouth every 6 (six) hours if needed for severe pain for up to 5 days. 20 tablet 11/13/19 25 025 Active Problems Problem Noted Date Diagnosed Date Screening for colon cancer 11/12/2024 Assessment & Plan (11/12/2024 2:58 PM EDT): Will refer to GI for screening colon cancer Strain of adductor tendon of right hip Assessment & Plan (08/18/2024 11:27 AM EDT): Continue with tylenol, home remedies, will refer to PT ST elevation myocardial infa rction involving left [...] stenosis Primary hypertension 09/17/2023 Assessment & Plan (11/12/2024 2:57 PM EDT): Controlled, continue current therapy, keep low sodium diet and exercise as tolerated, keep blood pressure log Assessment & Plan (08/18/2024 11:14 AM EDT): Controlled, keep low sodium diet and exercise as tolerated, keep bp log, continue current therapy, follow up in 3 months Assessment & Plan (05/12/2024 3:53 PM EDT): [...] Right hip pain 09/17/2023 Assessment & Plan (11/12/2024 2:57 PM EDT): Will refer to ortho as patient has advanced hip arthritis Assessment & Plan (05/12/2024 3:54 PM EDT): Will refer to ortho, Assessment & Plan (09/17/2023 7:29 PM EDT): Will order a right hip xray and will start on meloxicam, will refer to PT Encounters Date Type Department Care Team Description 11/12/2024 3:00 PM EDT Telemedicine [facility] MED & PEDS [address] [place] [address] Galindo Cameron MD Right hip pain (Primary Dx); Primary hypertension; Screening for colon cancer 11/12/2024 Travel 11/11/2024 Telephone [facility] P[facility] [address] [place] [address] Galindo Cameron MD 11/09/2024 Refill [facility] [address] [place] [address] Galindo Cameron MD Primary hypertension from Last 3 Months Immunizations Immunization Administration Dates Next Due Influenza, seasonal, injecta ble, preservative free 11/19/2023 Pfizer Covid-19 Vaccine 12+ 01/02/2021, 1,05/15/2020 Tdap 01/02/2019 Zoster, Recombinant 03/10/2019,01/02/2019 Family History Medical History Relation Name Comments Prostate cancer Mother's Brother Relation Name Status Comments Mother's Brother Social History Tobacco Use Types Packs/Day Years Used Date Smoking Tobacco: Never Passive Smoke Exposure: Never Smokeless Tobacco: Never Tobacco Cessation:Counseling Given: Not Answered Depression Answer Date Recorded Patient Health Questionnaire-9 Score 1 05/12/2024 Patient Health Questionnaire-9 Score 1 05/12/2024 Last PHQ-9: Questionnaire Data Not on file 0 05/12/2024 Housing Stability Answer Date Recorded What is your housing situation today? I have cameron bhandari 11/12/[address] you li ve. Do you have problems with any of the following? None of the above 11/12/2024 Food Insecurity Answer Date Recorded Within the past 12 months, y ou worried that your food would run out before you got money to buy more: Never True 11/12/2024 Within the past 12 months,th e food you bought just didn't last and you didn't have enough money to get more: Never True 02/2024 Transportation Answer Date Recorded In the past 12 months, has l ack of transportation kept you from medical appts, meetings, work or from getting things needed for daily living? No 11/12/2024 Utilities Answer Date Recorded In the past 12 months, has t he electric, gas, oil or water company threatened to shut off services in your home? No 11/12/2024 Depression Answer Date Recorded Patient Health Questionnaire-2 Score 0 05/12/2024 Internet Access Answer Date Recorded Internet Access Q1 Yes 11/12/2024 Internet Access Q2 Not on file 11/12/2024 Sex and Gender Information Value Date Recorded Sex Assigned at Male 12/12/2021 10:18 AM EDT Legal Sex Male 10:18 AM EDT Gender Identity Male 12/12/2021 10:18 AM EDT Sexual Orientation Straight 09/03/2023 2: 31 PM EDT Last Filed Vital Signs Vital Sign Reading Time Taken Comments Blood Pressure 127/83 11/12/2024 2:47 PM EDT Pulse 72 08/18/2024 10:34 AM EDT Temperature 36.9 C (98.5 F) 08/18/2024 10:34 AM EDT Respiratory Rate 16 08/18/2024 10:34 AM EDT Oxygen Saturation 98% 11/19/2023 10:32 AM EDT Inhaled Oxygen Concentration - - Weight 114 kg (252 lb) 08/18/2024 10:34 AM EDT Height 182.9 cm (6') 12/26/2023 10:50 AM EST Body Mass Index 34.18 12/26/2023 10:50 AM EST Plan of Treatment Health Maintenance Due Date Last Done Comments CT Colonography 1964 Colonoscopy 1964 Colorectal Cancer Screening 1964 FIT DNA/Cologuard 1964 FIT 1964 FOBT 1964 Sigmoidoscopy 1964 Pneumococcal Vaccine: 50+ Years (1 of 2 - PCV) 11/05/1983 COVID-19 Vaccine (5 - season) 2024 01/22/2022, 01/02/2021, 06/05/2020, Additional history exists Influenza Vaccine (#1) 2024 11/19/2023 RSV Patients and Patients Aged 60 years or older (1 - Risk 60-74 years 1-dose series) 2024 Alcohol/Substance Use Screening 05/12/2025 05/12/2024 Depression Screening 05/12/2025 05/12/2024, 05/13/19 25 Diabetes: Hemoglobin A1C 06/04/2025 06/04/2024 Tobacco Screening 08/18/2025 08/18/2024 Disability Screening 11/12/2025 11/12/2024 SDOH Screening 11/12/2025 11/12/2024 DTaP/Tdap/Td Vaccines (2 - Td or Tdap) 01/02/2029 01/02/2019 Lipid Panel 06/04/2029 06/04/2024, 08/0 10/2023, 01/21/2021 Zoster Vaccines Completed 03/10/2019, 01/02/2019 HIV Screening Completed 06/04/2024 Hepatitis C Screening Completed 06/04/2024 HIB Vaccines Aged Out No longer eligi ble based on patient's age to complete this topic HPV Vaccines Aged Out No longer eligi ble based on patient's age to complete this topic Hepatitis A Vaccines Aged Out No long er eligible based on patient's age to complete this topic Hepatitis B Vaccines Aged Out No long er eligible [...] Procedure Name Priority Date/Time Associated Diagnosis Comments HEPATITIS C AB W/REFL TO HCV RNA, QN, PCR Routine 06/04/2024 9:53 AM EDT Primary hypertension HIV 1/2 ANTIGEN/ANTIBODY, FOURTH GENERATION W/RFL Routine 06/04/2024 9:53 AM EDT Primary hypertension LIPID PANEL, STANDARD Routine 06/04/2024 9:52 AM EDT Primary hypertension HEMOGLOBIN A1C Routine 06/04/2024 9:32 AM EDT Primary hypertension from Last 3 Months or Most Recently Relevant to Health Maintenance Results * Hepatitis C Antibody with Reflex to HCV, RNA, Quantitative, Real-Time PCR (06/04/2024 9:53 AM EDT) Hepatitis C Antibody Nonreactive Nonreactive [facility] Comment:Antibodies to HCV no t detected; does not exclude early acuteHCV infection. Blood Venous blood specimen / Unknown 06/04/2024 9:53 AM EDT 06/04/2024 2:06 PM EDT us Galindo Field MD LAB BLOOD ORDERABL ES Final Result [facility] [address] [place] [phone] * HIV-1/2 Antigen and Antibodies, Fourth Generation, with Reflexes (06/04/2024 9:53 AM EDT) HIV AB/AG Nonreactive Nonreactive [facility] Comment:HIV-1 p24 Ag and/or HIV-1/HIV-2 Ab not detected.A test result that is nonreactive does not exclude thepossibility of exposure to or infection with HIV-1 and/orHIV-2. Nonreactive results in this assay for individualswith prior exposure to HIV-1 and/or HIV-2 may be due toantigen and antibody levels that are below the limit ofdetection of this assay.The [employer] HIV Ag/Ab Combo assay result andsupplemental assay results should be interpreted inconjunction with the patient's clinical presentation,history and other laboratory results. If the results areinconsistent with clinical evidence, additional testing issuggested to confirm the result. Blood Venous blood specimen / Unknown 06/04/2024 9:53 AM EDT 06/04/2024 2:06 PM EDT us Galindo Field MD LAB BLOOD ORDERABL ES Final Result [facility] [address] [place] [phone] * (ABNORMAL) Lipid Panel, Standard (06/04/2024 9:52 AM EDT) Triglycerides 102 <150 mg/dL [facility] Comment:Desirable Triglyceri de: less than 150 mg/dLBorderline High Triglyceride 150-199 mg/dLHigh Triglyceride: 200-499 mg/dLVery High Triglyceride: greater than or equal to 5OO mg/dL Cholesterol 116 <200 mg/dL [facility] Comment:Desirable Cholestero l: less than 200 mg/dLBorderline High Cholesterol: 200-239 mg/dLHigh Cholesterol: greater than 239 mg/dL LDL Cholesterol Calculated 68 <100 mg/dL [facility] Comment:Desirable LDL: less than 100 mg/dLNear Optimal/Above Optimal LDL: 110- 129 mg/dLBorderline High LDL: 130-159 mg/dLHigh LDL: 160-189 mg/dLVery High LDL: greater than or equal to 190 mg/dL HDL Cholesterol 28(L) >40 mg/dL [facility] Comment:Desirable HDL: great er than 40 mg/dL Note: This HDL assay may give artificially low results in patients with liver disease. Blood Venous blood specimen / Unknown 06/04/2024 9:52 AM EDT 06/04/2024 2:06 PM EDT Galindo Field MD LAB BLOOD ORDERABL ES Final Result Performing Organization Address [facility] Co de Phone Number [facility] [address] [place] [phone] * (ABNORMAL) Hemoglobin A1c (06/04/2024 9:32 AM EDT) Hemoglobin A1c 6.3(H) <6.0 % [facility] Comment:Hemoglobin A1C Refer ence Range Adults: 4.8 - 6.0 % Non diabetic: < 6.0 % Goal: < 7.0 %Additional Action Suggested: > 8.0 %Note: Hemoglobin A1c results are invalid for patients with abnormal amounts of HbF. Blood transfusions may impact the HbA1c concentration in the patient sample. Estimated Average Glucose 134 mg/dL [facility] Comment:eAG = Estimated ave rage glucose which is %A1C expressed asaverage glucose, using the formula of the [id number] Glucose study (ADAG), Diabetes Care, Vol.31,#8,Sep. 2007 Blood Venous blood specimen / Unknown 06/04/2024 9:32 AM EDT 06/04/2024 2:06 PM EDT Galindo Field MD LAB BLOOD ORDERABL ES Final Result Performing Organization Address [facility] Co de Phone Number [facility] [address] [place] [phone] from Last 3 Months or Most Recently Relevant to Health Maintenance Insurance Care Teams Airline Counter Agent Relationship Specialty Start Date End Date MerlosGalindo Carbajal MD [address] [place] [phone] PCP - General Internal Medicine 01/02/19
--- OUTSIDE RECORDS SUMMARY | 2024-11-21 09:12 | XMS_ITS | Encounter Summary ---
Author Organization [employer] Address [address] [facility] 7 [place] [address] Care Team Providers Care Fireworks Assembler Name Role Phone Galindo Cameron MD Primary Care Prov ider Reason for Visit * Reason Onset Date Comments Pre-Op 08/24/2023 Encounter Details Date Type Department Care Team (Late st Contact Info) Description 08/24/2023 Telephone [facility] MEDICINE [address] [place] [address] Galindo Cameron MD [address] [place] [phone] Pre-Op Social History Tobacco Use Types Packs/Day [...] EDT [place] [place] agreed to pre-op on 08/31/[address] Torres Date of Surgery: 09/11 Surgical procedure being done: Eye Muscle Surgery Type of anesthesia: General Lab needed: No EKG: No Surgeon's name: Dr. Declan Gar Facility name: [facility] Surgeon's office number: [phone] Surgeon's office fax number: [phone] Contact name: Kiley * Telephone Encounter - Rajiv Feliberto - 08/24/2023 11:35 AM EDT Date of Surgery: 09/11 Surgical procedure being done: Eye Muscle Surgery Type of anesthesia: General Lab needed: No EKG: No Surgeon's name: Dr. Declan Gar Facility name: [facility] Surgeon's office number: [phone] Surgeon's office fax number: [phone] Contact name: Kiley documented in this encounter Plan of Treatment Not on file documented as of this encounter Visit Diagnoses Not on filedocumented in this encounter Care Teams Fireworks Assembler Relationship Specialty Start Date End Date MerlosGalindo Carbajal MD [address] [place] [phone] PCP - General Internal Medicine 01/02/19 documented as of this encounter
[2024-11-21 14:29] LABS: Alanine Aminotransferase 36 U/L (0-40); Albumin Level 4.8 g/dL (3.5-5.0); Alkaline Phosphatase 68 U/L (39-117); Anion Gap 13 (12-20); Aspartate Amino Transferase 37 U/L (5-37); Blood Urea Nitrogen 21 mg/dL (9-16); Calcium 9.5 mg/dL (8.4-10.2); Carbon Dioxide 28 mmol/L (22-29); Chloride 101 mmol/L (96-108); Cholesterol 126 mg/dL (<200); Estimated Glomerular Filt Rate > 60; HDL Cholesterol 31 mg/dL (>40); Potassium 3.8 mmol/L (3.3-5.1); Sodium 138 mmol/L (135-145); Total Protein 8.0 g/dL (6.5-8.0); Triglycerides 97 mg/dL (<150)
== END 2024-11-21 08:51 | disposition home or self-care (01) ==
LOC: HO.CHCLDS 08:50
PROVIDERS: Visit Provider Internal Medicine
DX: I10 Essential (primary) hypertension (principal); Z13.1 Encounter for screening for diabetes mellitus
CPT/HCPCS: 36415; 80053; 80061; 83036